=== PATIENT | female | born 1995 | race African-American/Black ===

== ENCOUNTER 2019-07-14 13:30 | Emergency (ER) | payer OTHER, SELFPAY ==
[2019-07-14 13:52] VITALS: BP 125/50; PULSE 88; RESP 17; TEMP 36.8; O2SAT 100
[2019-07-14 14:02] LABS: Basophils Percent Auto 0.3 % (0.2-1.2); Eosinophils Absolute Auto 0.2 K/mm3 (0-0.3); Eosinophils Percent Auto 2.2 % (0-4.4); Hematocrit 33.4 % (37.0-47.0); Hemoglobin 10.9 g/dL (12.0-15.0); Immature Granulocyte Absolute 0.02 K/mm3 (0.00-0.031); Immature Granulocyte Percent A 0.2 % (0-0.5); Lymphocytes Percent Auto 24.4 % (18.3-44.2); Mean Corpuscular HGB Conc 32.6 g/dl (32-36); Mean Corpuscular Hemoglobin 27.5 pg (26-34); Mean Corpuscular Volume 84.3 fl (80-100); Mean Platelet Volume 9.6 fl (7.4-10.4); Monocytes Absolute Auto 0.5 K/mm3 (0.1-0.6); Monocytes Percent Auto 4.5 % (2.6-8.5); Neutrophils Absolute Auto 7.6 K/mm3 (1.3-6.7); Neutrophils Percent Auto 68.4 % (45.5-73.1); Platelet Count Result 244 k/mm3 (150-375); Red Blood Count 3.96 M/mm3 (4.2-5.4); Red Cell Distribution Width 13.6 % (11.5-14.5); White Blood Count 11.1 K/mm3 (4.5-10.0)
[2019-07-14 14:20] LABS: Alanine Aminotransferase 12 U/L (4-35); Alkaline Phosphatase 66 U/L (38-126); Aspartate Amino Transferase 17 U/L (14-36); Bilirubin,Total 0.2 mg/dL (0.2-1.3); Blood Urea Nitrogen 8 mg/dL (7-17); Calcium 9.2 mg/dL (8.4-10.2); Carbon Dioxide 23 mmol/L (22-30); Chloride 104 mmol/L (98-107); Estimated CRCL calculation 147 ml/min; Estimated Glomerular Filt Rate > 60; Glucose 83 mg/dL (65-105); Lipase 54 U/L (23-300); Potassium 3.8 mmol/L (3.4-5.0); Sodium 138 mmol/L (137-145)
[2019-07-14 14:22] LABS: Add Urine Microscopic? NO; Appearance Urine Clear (Clear); Bilirubin Urine Negative (Negative); Blood Urine Negative (Negative); Color Urine Yellow (Yellow); Glucose Urine UA Negative (Negative); Ketones Urine Negative (Negative); Leukocyte Esterase Ur Negative LEU/UL (Negative); Nitrate Urine Negative (Negative); Protein Urine Negative (Negative); Specific Grav Ur 1.025 (1.001-1.035); Urobilinogen Urine Negative mg/dL (<2.0)
[2019-07-14 16:50] VITALS: BP 115/56; PULSE 82; RESP 16; O2SAT 100
--- NOTE | 2019-07-14 16:50 | ED.ABDPAIN ---
HPI - Abdominal Pain General Chief Complaint: Abdominal Pain Stated Complaint: preg, abd pain Time Seen by Provider: 07/14/19 16:48 Source: patient and RN notes reviewed Mode of arrival: other Limitations: no limitations History of Present Illness HPI narrative: Pt is a 23 y/o female who presents to the ED with c/o intermittent lower abdominal pain that began Sunday (07/12/19). Pt is 18 weeks gestation and has a hx of . Pt reports intermittent nausea, but denies a fever, vomiting, diarrhea, vaginal bleeding, and vaginal discharge. Pt's OB is Dr. Luz. elicited complaint: abdominal pain Onset (ago): day(s) (2) Pain Consistency: intermittent Location: other (lower) Associated symptoms: nausea (intermittent) Related Data Patient : Yes Home Medications Medication Instructions Recorded Confirmed [id number] 1 cap PO DAILY 07/14/19 [One-A-Day Women's 1] sulfamethoxazole-trimethoprim 07/14/19 triamcinolone acetonide TOPICAL 07/14/19 Allergies Allergy/AdvReac Type Severity Reaction Status Date / Time No Known Allergies Allergy Verified 07/14/19 16:55 Review of Systems Review of Systems: All systems reviewed & are unremarkable except as noted in HPI and below Constitutional: Constitutional: Denies fever(s) Gastrointestinal: Gastrointestinal: Reports abdominal pain (lower), Denies diarrhea, Reports nausea (intermittent) and Denies vomiting Genitourinary: Genitourinary: Denies abnormal vaginal bleeding and Denies vaginal discharge PMFSH Past Medical History Medical History (Updated 07/14/19 @ 18:03 by Feliberto Curiel MD) Healthy female Surgical History Surgical History (Updated 07/14/19 @ 17:00 by Tawanna Waggoner) Surgical history unknown Social History Social History (Updated 07/14/19 @ 17:00 by Tawanna Waggoner) Smoking status: Unknown if ever smoked Gender identity (if verbalized by the patient): Female Exam Const: General: no acute distress and alert Orientation/consciousness: patient oriented x3 HENMT: Head: normal to inspection Eyes: Conjunctivae: conjunctivae normal Pupils: Equal, round and reactive pupils present Neck: Neck: normal visual inspection Chest: Chest palpation & inspection: normal inspection of the chest Resp: Effort & Inspection: normal respiratory effort Cardio: Rate: regular rate Rhythm: regular rhythm GI: GI Palp: Yes Soft to palpation Back/Spine/Pelvis: Back: no CVA tenderness Skin: General skin exam: normal color Neuro: General: patient oriented x3, moves all extremities and CN's II-XI intact bilaterally Extrem: General: normal to inspection Course Course Emergency Course: Patient comfortably resting on the bed in no discomfort along with her son. I reviewed all the lab work and heart tones with the patient. At this time her pain is nonspecific or could be a round ligament pain. I advised her to follow-up with her primary [facility] [employer] [facility] in [place]. Vital Signs Vital signs: Vital Signs Temperature 36.8 C 07/14/19 13:52 Pulse Rate 88 07/14/19 13:52 Respiratory Rate 17 07/14/19 13:52 Blood Pressure 125/50 L 07/14/19 13:52 Pulse Oximetry 100 07/14/19 13:52 Temperature 36.8 C 07/14/19 13:52 Pulse Rate 82 07/14/19 16:50 Respiratory Rate 16 07/14/19 16:50 Blood Pressure 115/56 L 07/14/19 16:50 Pulse Oximetry 100 07/14/19 16:50 MDM - Abdominal Pain Lab Data Result diagrams: 07/14/19 13:56 07/14/19 13:56 Labs: Lab Results 07/14/19 07/14/19 07/14/19 Range/Units 13:56 13:56 14:06 WBC 11.1 H (4.5-10.0) K/mm3 RBC 3.96 L (4.2-5.4) M/mm3 Hgb 10.9 L (12.0-15.0) g/dL Hct 33.4 L (37.0-47.0) % MCV 84.3 (80-100) fl MCH 27.5 (26-34) pg MCHC 32.6 (32-36) g/dl RDW 13.6 (11.5-14.5) % Plt Count 244 (150-375) k/mm3 MPV 9.6 (7.4-10.4) fl Immature Gran % (Auto) 0.2 (0-0.5) %
[2019-07-14 18:50] VITALS: BP 110/76; PULSE 80; RESP 16; O2SAT 98
== END 2019-07-14 18:50 | disposition home or self-care (01) ==
PROVIDERS: Emergency Medicine; Emergency Provider Family Medicine
DX: O26.892 Other specified pregnancy related conditions, second trimester (principal); R10.30 Lower abdominal pain, unspecified; Z3A.18 18 weeks gestation of pregnancy
CPT/HCPCS: 36415; 80053; 81003; 83690; 85025; 99283